=== PATIENT | female | born 1995 | race Two or more races ===

== ENCOUNTER 2020-03-21 16:21 | Emergency (ER) | payer OTHER ==
[2020-03-21 16:24] VITALS: BP 117/63
--- NOTE | 2020-03-21 17:26 | NUR ---
TESTING LEAD: PT TO ROOM FROM LOBBY, GAIT SLOW AND STEADY
== END 2020-03-21 19:18 | disposition home or self-care (01) ==
LOC: ED 18:20
DX: F32.9 Major depressive disorder, single episode, unspecified (principal); Z76.0 Encounter for issue of repeat prescription
CPT/HCPCS: 99281

== ENCOUNTER 2020-06-17 11:55 | Emergency (ER) | payer OTHER ==
[~2020-06-17] VITALS: Ht 165.1 cm; Wt 109.0 kg
[2020-06-17 12:07] VITALS: BP 131/82
[2020-06-17] MEDS ORDERED: DEXAMETHASONE 4 MG/ML, 5ML ONE (12:14)
[2020-06-17] MEDS ORDERED: DEXAMETHASONE 4 MG/ML, 1ML IM ONE (12:30)
--- NOTE | 2020-06-17 12:50 | NUR ---
PT VERBALIZED UNDERSTANDING OF DC INSTRUCTIONG, CONVERSING W/O DIFFICULTY, RESP EVEN AND UNLABORED, NADN. PT AMBULATED TO THE DC DESK W/ A STEADY GAIT.
== END 2020-06-17 12:58 | disposition home or self-care (01) ==
LOC: ED 12:56
DX: J03.91 Acute recurrent tonsillitis, unspecified (principal)
CPT/HCPCS: 87081; 87147; 87880; 96372; 99283; J1100